=== PATIENT | female | born 1945 | race Two or more races ===

== ENCOUNTER 2025-08-29 19:33 | Emergency (ER) | payer OTHER ==
[~2025-08-29] VITALS: Ht 170.2 cm; Wt 6.5 kg
--- NOTE | 2025-08-29 20:15 | ED.PDOC ---
History of Present Illness HPI Comments 80 year old female presents to the ED with a chief complaint of abdominal pain onset 4 days. Patient states she has been experiencing intermittent lower abdominal pain for the past 4 days, as well as vaginal discharge, clear and intermittent brown discharge. Patient had hysterectomy on 06/14/25 at [facility], has not followed up with OBGYN who performed surgery. Denies fever, chills, nausea, vomiting, diarrhea, dysuria, hematuria, melena, blood in stool, headache, dizziness, chest pain, shortness of breath. No other symptoms or modifying factors present at this time. REVIEW OF SYSTEMS: General: No fever, no chills, or fatigue HEENT: No sore throat, no earache, no congestion, no neck pain. Cardiac: No chest pain. No palpitations. Lungs: No shortness of breath, no cough. GI: +Abdominal pain. No nausea, no vomiting, no diarrhea, no constipation : +Vaginal discharge. No dysuria, frequency, or urgency. No hematuria. Musculoskeletal: No joint pain , no joint swelling, no extremity edema. Skin: No rash, no itching. Neuro: No headache, no dizziness, no weakness (And as sated in HPI) PHYSICAL EXAM: General: Awake, alert and oriented. No acute distress. Skin: Skin in warm, dry and intact. Appropriate color for ethnicity. HEENT: The head is normocephalic and atraumatic. Conjunctivae are clear without exudates or hemorrhage. Sclera is non-icteric. Eyelids are normal in appearance without swelling or lesions. Oral mucosa is pink and moist Neck: The neck is supple with normal range of motion. No JVD. Cardiac: Heart rate and rhythm are normal. No murmurs, gallops, or rubs are auscultated. Respiratory: No signs of respiratory distress. Lung sounds are clear in all lobes bilaterally without rales, rhonchi, or wheezes. Abdominal: Abdomen is soft, left lower quadrant tenderness without distention, guarding or rigidity.. Extremities: Upper and lower extremities are atraumatic in appearance without deformity or edema. Neurological: The patient is awake, alert and oriented to person, place, and time with normal speech. Speech is clear. There is no facial asymmetry. Psychiatric: Appropriate mood and affect. Good judgement and insight. 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 Was a procedure done?: No Differential Dx Considerations may include: Differential diagnoses considered include: Abdominal aortic aneurysm, NC, esophageal rupture, intestinal obstruction, mesenteric ischemia, perforated viscus or solid organ rupture, CHF with hepatomegaly, pneumonia, abscess, appendicitis, biliary disease, diverticulitis, gastritis, gastroenteritis, hepatitis, hernia, inflammatory bowel disease, pancreatitis, peptic ulcer disease, urinary tract infection, ureteral colic, constipation, GERD, irritable syndrome, abdominal wall pain, nonspecific abdominal pain, herpes zoster, nephrolithiasis. X-Ray, Labs, Meds, VS Vital Signs Date Time Temp Pulse Resp B/P (MAP) Pulse Ox O2 Delivery O2 Flow Rate FiO2 08/29/25 21:18 98.7 120 18 123/76 (92) 96 98.7 08/29/25 21:18 65 15 96 Room Air* 0 21 08/29/25 19:39 97.7 71 20 126/62 97 97.7 Lab Test 08/29/25 20:25 08/29/25 20:11 Range/Units Urine Color Yellow Yellow Urine Clarity Turbid H Clear Urine pH 5.5 5.0-9.0 Urine Specific [place] 1.030 1.001-1.035 Urine Protein 1+ H Negative Urine Ketones Negative Negative Urine Blood Negative Negative /uL Urine Nitrite Negative Negative Urine Bilirubin Negative Negative Urine Urobilinogen Normal Negative mg/dL Urine Leukocyte Esterase 3+ Negative /uL Urine RBC 1 0 - 4 /hpf Urine Microscopic WBC 134 H 0-5 /HPF Urine Squamous Epithelial Cells Few <5 /hpf Urine Bacteria None seen None Seen /hpf Urine Mucus Few None Seen Urine Glucose Normal Normal mg/dL White Blood Count 11.3 H 4.4-10.8 10^3/uL Red Blood Count 4.37 4.0-5.20 10^6/uL Hemoglobin 13.5 12.2-16.2 g/dL Hematocrit 40.8 36.0-46.0 % Mean Corpuscular Volume 93.5 80.0-100.0 fL Mean Corpuscular Hemoglobin 30.9 28.0-32.0 pg Mean Corpuscular Hemoglobin Concent 33.1 32.0-36.0 g/dL Red Cell Distribution Width 14.6 H 11.8-14.3 % Platelet Count 225 140-450 10^3/uL Mean Platelet Volume 7.7 6.9-10.8 fL Neutrophils (%) (Auto) 73.4 37.0-80.0 % Lymphocytes (%) (Auto) 18.4 10.0-50.0 % Monocytes (%) (Auto) 6.8 0.0-12.0 % Eosinophils (%) (Auto) 0.6 0.0-7.0 % Basophils (%) (Auto) 0.8 0.0-2.0 % Neutrophils # (Auto) 8.3 1.6-8.6 10 ^3/uL Lymphocytes # (Auto) 2.1 0.4-5.4 10 ^3/uL Monocytes # (Auto) 0.8 0-1.3 10 ^3/uL Eosinophils # (Auto) 0.1 0-0.8 10 ^3/uL Basophils # (Auto) 0.1 0-0.2 10 ^3/uL Nucleated Red Blood Cells 0.1 % Sodium Level 138 136-145 mmol/L Potassium Level 4.6 3.5-5.1 mmol/L Chloride Level 102 98-107 mmol/L Carbon Dioxide Level 27 20-31 mmol/L Anion Gap 9 5-15 Blood Urea Nitrogen 19 9-23 mg/dL Creatinine 1.25 H 0.550-1.02 mg/dL Glomerular Filtration Rate Calc 44 >90 mL/min BUN/Creatinine Ratio 15.2 10.0-20.0 Serum Glucose 170 H 74-106 mg/dL Calcium Level 9.9 8.7-10.4 mg/dL Time of 1ST Reevaluation: 20:25 Reevaluation 1ST: Unchanged Patient Education/Counseling: Need For Follow Up Family Education/Counseling: Need For Follow Up SEPSIS Sepsis Screen Date sepsis recognized/suspect: Aug 29, 2025 Time Sepsis recognized/suspect: 1944 Recent Procedure: No On Antibiotic Therapy: No Respiratory Rate >20: No Heart Rate >90: No Temp<36 C (96.8 F) or >38.3 C: No SBP <90 or MAP <65 mmHG: No New Acute Mental Status Change: No Is the patient on CPAP, BIPAP,: No Physician Orders Saline Lock (08/29/25 20:19) Ct Ab Pel With Iv Con Only (08/29/25 20:19) Vital Signs Date Time Temp Pulse Resp B/P (MAP) Pulse Ox O2 Delivery O2 Flow Rate FiO2 08/29/25 21:18 98.7 120 18 123/76 (92) 96 98.7 08/29/25 21:18 65 15 96 Room Air* 0 21 08/29/25 19:39 97.7 71 20 126/62 97 97.7 Laboratory Tests Test 08/29/25 20:11 White Blood Count 11.3 10^3/uL (4.4-10.8) H Departure 1 Departure Time of Disposition: 22:46 Impression: Primary Impression: Diverticulitis Disposition: HOME / SELF CARE / HOMELESS Condition: Stable Additional Instructions: ED DISCHARGE INSTRUCTIONS Instructions: Please read all instructions provided in this packet carefully. Although you have been discharged from the Emergency Department, this does not mean that you have a "clean bill of health". No definitive diagnosis for your symptoms has been made today. It is possible that you are in the process of developing a serious illness. This is why you must return to the ED without fail if any new or worsening symptoms (especially if your symptoms include chest pain, trouble breathing, abdominal pain, fever, headache, confusion, trouble seeing, or trouble walking) It is also very important that you see a primary care provider (PCP) within the next 3-5 days to follow up. If you are unable to get an appointment, return to the ED for re-evaluation. Abdominal Pain: Care Instructions Overview Abdominal pain has many possible causes. Some aren't serious and get better on their own in a few days. Others need more testing and treatment. If your pain continues or gets worse, you need to be rechecked and may need more tests to find out what is wrong. You may need surgery to correct the problem. Don't ignore new symptoms, such as fever, nausea and vomiting, urination problems, pain that gets worse, and dizziness. These may be signs of a more serious problem. If you are not getting better, you may need more tests or treatment. The doctor has checked you carefully, but problems can develop later. If you notice any problems or new symptoms, get medical treatment right away. Follow-up care is a garcia part of your treatment and safety. Be sure to make and go to all appointments, and call your doctor if you are having problems. It's also a good idea to know your test results and keep a list of the medicines you take. How can you care for yourself at home? Rest until you feel better. To prevent dehydration, drink plenty of fluids. Choose water and other clear liquids until you feel better. If you have kidney, heart, or liver disease and have to limit fluids, talk with your doctor before you increase the amount of fluids you drink. When you feel like eating, start with small amounts. Do not have alcohol, caffeine, or spicy, hot, or high-fat foods for a day or two. Avoid anti-inflammatory medicines such as aspirin, ibuprofen (Advil, Motrin), and naproxen (Aleve). These can cause stomach upset. Talk to your doctor if you take daily aspirin for another health problem. When should you call for help? Call 911 anytime you think you may need emergency care. For example, call if: You passed out (lost consciousness). You pass maroon or very bloody stools. You vomit blood or what looks like coffee grounds. You have severe belly pain. Call your doctor now or seek immediate medical care if: Your pain gets worse, especially if it becomes focused in one area of your belly. You have a new or higher fever. Your stools are black and look like tar, or they have streaks of blood. You have unexpected vaginal bleeding. You have symptoms of a urinary tract infection. These may include: Pain when you urinate. Urinating more often than usual. Blood in your urine. You are dizzy or lightheaded, or you feel like you may faint. Watch closely for changes in your health, and be sure to contact your doctor if: You are not getting better as expected. Credits for Abdominal Pain: Care Instructions Current as of: August 19, 2023 Author: Movermicky Ongo Staff Clinical Review Board All [employer] education is reviewed by a team that includes physicians, nurses, advanced practitioners, registered dieticians, and other healthcare professionals. e-Prescriptions Acetaminophen (Acetaminophen) 500 Mg Tab 500 MG PO TIDPRN PRN for 3 Days, #9 TAB Prov: SAMSON LUBIN MD 08/29/25 Amoxicillin & Pot Clavulanate (AUGMENTIN TABLET) 875 Mg Tb 875 MG PO BID for 10 Days, #19 TAB Prov: SAMSON LUBIN MD 08/29/25 Comments MDM: 80-year-old female with diverticulitis. Patient vital signs stable. Patient wa s offered admission for further treatment, observation and evaluation. Discussed risks, benefits and return precautions with the patient. The patient is declined admission and is requesting to be discharged home to follow up with the primary care provider as an outpatient. Patient well-appearing, nontoxic. Advised prompt follow-up with PCP, return to the ED with any new, worsening or concerning symptoms. - I reviewed the following notes from the pt's past medical encounters: N/A The following tests were ordered, and results were reviewed by me: (See diagnostic results section) The following test were independently interpreted by me: N/A Additional information was gathered from interviewing the following independent historians: Patient's and daughter at bedside I reviewed and agreed with the following test results read by other providers: N/A I discussed treatments and results with patient Decision regarding hospitalization or escalation of hospital level of care: Risks and benefits of admission for further treatment of patient's condition was considered however due to patient's stable condition patient will be discharged to follow up closely or return to care for worsening of condition or inability to follow up. Critical Care Note Critical Care Time?: No Stability Stability form required: No Heart Score Heart Score: Heart Score Response (Comments) Value History N/A 0 EKG N/A 0 Age N/A 0 Risk Factors N/A 0 Troponin N/A 0 Total 0 I personally scribed for SAMSON LUBIN MD ([email or web address]) on 08/29/25 at 20:24. Electronically submitted by Jacqueline Alvarado ([email or web address]). SAMSON LUBIN MD Aug 29, 2025 20:15
[2025-08-29 20:28] LABS: Chloride 102 mmol/L (98-107); Potassium 4.6 mmol/L (3.5-5.1); Sodium 138 mmol/L (136-145)
[2025-08-29 20:29] LABS: Anion Gap 9 (5-15); Carbon Dioxide 27 mmol/L (20-31)
[2025-08-29 20:30] LABS: Calcium 9.9 mg/dL (8.7-10.4)
[2025-08-29 20:31] LABS: Hematocrit 40.8 % (36.0-46.0); Hemoglobin 13.5 g/dL (12.2-16.2); Mean Corpuscular Hemoglobin 30.9 pg (28.0-32.0); Mean Corpuscular Volume 93.5 fL (80.0-100.0); Nucleated Red Blood Cells % 0.1 %
[2025-08-29 20:34] LABS: BUN/Creatinine Ratio 15.2 (10.0-20.0); Blood Urea Nitrogen 19 mg/dL (9-23)
[2025-08-29] MEDS: IOHEXOL 300 MG/ML 100ML BOTTLE IJ ONE (21:00)
[2025-08-29 21:01] LABS: Glucose 170 mg/dL (74-106)
[2025-08-29 21:05] LABS: Urine Protein, UAD 1+ (Negative)
[2025-08-29 21:18] VITALS: BP 123/76; PULSE 65; RESP 15; TEMP 98.7; O2SAT 96
--- NOTE | 2025-08-29 21:46 | DVH ---
Exam: CT CT AB PEL WITH IV CON ONLY History: LLQ pain s/p hysterectomy Comparison Study: None TECHNIQUE: Multidetector CT of the abdomen and pelvis with IV contrast. Axial, coronal and sagittal m ultiplanar reformats were obtained from the axial data set by the technologist. Radiation Dose Information: CT Dose: CTDI volume is 7.79 mGy. Dose-length product is 413.23 mGy*cm FINDINGS: Bibasilar atelectasis. Partially visualized heart is unremarkable. 1.5 cm right hepatic lobe cyst. Mild hepatomegaly with hepatic steatosis. Otherwise, liver, spleen, gallbladder, and adrenal glands unremarkable. Subcentimeter hypodense pancreatic body lesion which m ay represent a cyst. Otherwise, the pancreas is unremarkable. Kidneys, ureters and urinary bladder are unremarkable. Status post hysterectomy. Stomach is unremarkable. Wall thickening of Proximal small bowel loops. The remainder of the small bowel loops unremarkable. Appendix is not definitely visualized. Without visualization of the append ix, can not exclude acute appendicitis. Small amount of fecal material within the colon. Descending c olon and Sigmoid diverticulosis with wall thickening of the sigmoid and associated adjacent fat stran ding. No free air or free fluid is noted. No evidence of aortic aneurysm or dissection. Mild atherosclerotic calcification of the aorta. No significant lymphadenopathy. Soft tissues are unremarkable. No evidence of acute osseous abnormalities. Moderate to severe degener ative changes of the lower thoracic and lumbar spine. IMPRESSION: Descending colon and Sigmoid diverticulosis with sigmoid diverticulitis. No associated free air or fr ee fluid. Wall thickening of Proximal small bowel loops. Correlate for enteritis. Subcentimeter pancreatic body cyst. Small hepatic cysts. Mild hepatomegaly with hepatic steatosis.
[2025-08-29] MEDS ORDERED: AUG875T PO (22:47)
[2025-08-29] MEDS ORDERED: ACET500T58 PO (22:47)
[2025-08-29] MEDS: AMOXICILLIN/CLAVUL 875 MG TAB PO ONE (23:15)
== END 2025-08-29 23:16 | disposition home or self-care (01) ==
LOC: ER 19:33
DX: K57.32 Diverticulitis of large intestine without perforation or abscess without bleeding (principal); Z90.710 Acquired absence of both cervix and uterus
CPT/HCPCS: 36415; 74177; 80048; 81001; 85025; 99285; Q9967